=== PATIENT | female | born 1955 | race Caucasian/White ===

== ENCOUNTER → 2023-11-29 06:48 | Outpatient (REF) | payer MEDICARE, OTHER, SELFPAY | LOC: WDC 06:48 | PROVIDERS: ATTENDING PHYSICIAN Physician Assistant | DX: N64.4 Mastodynia (principal); Z85.3 Personal history of malignant neoplasm of breast | CPT/HCPCS: 76642; 77061; 77065 ==

== ENCOUNTER → 2024-06-07 14:33 | Outpatient (REF) | payer MEDICARE, OTHER, SELFPAY | LOC: WDC 14:33 | PROVIDERS: ATTENDING PHYSICIAN Physician Assistant | DX: Z12.31 Encounter for screening mammogram for malignant neoplasm of breast (principal) | CPT/HCPCS: 77063; 77067 ==